=== PATIENT | male | born 1950 | race Caucasian/White ===

== ENCOUNTER 2019-05-27 10:39 | Day surgery (SDC) | payer MEDICARE, OTHER ==
[2019-05-27] VITALS (7 sets, daily range): BP systolic 102–146; BP diastolic 51–87
[~2019-05-27] VITALS: Ht 175.3 cm; Wt 93.3 kg
[2019-05-27] MEDS ORDERED: LISI10TA4 PO (11:33)
[2019-05-27] MEDS ORDERED: ATOR40TA71 PO (11:33)
[2019-05-27] MEDS ORDERED: CLOP75TA35 PO (11:33)
[2019-05-27] MEDS ORDERED: CARV-50 PO (11:33)
[2019-05-27] MEDS ORDERED: SERT100T10 PO (11:33)
[2019-05-27 11:46] LABS: BASOPHILS # (AUTO) 0.1 X10'3 (0-0.2); BASOPHILS % (AUTO) 0.9 % (0-1); EOSINOPHILS # (AUTO) 0.2 X10'3 (0-0.9); EOSINOPHILS % (AUTO) 2.8 % (0-6); HEMATOCRIT 41.1 % (42.0-52.0); HEMOGLOBIN 14.2 g/dl (14.0-17.9); LYMPHOCYTES # (AUTO) 1.8 X10'3 (1.1-4.8); LYMPHOCYTES % (AUTO) 27.6 % (21-51); MEAN CORPUSCULAR HEMOGLOBIN 28.4 PG (27.0-31.0); MEAN CORPUSCULAR HGB CONC 34.5 g/dL (33.0-36.5); MEAN CORPUSCULAR VOLUME 82.4 FL (78-98); MEAN PLATELET VOLUME 7.1 FL (7.4-10.4); MONOCYTES # (AUTO) 0.6 X10'3 (0-0.9); MONOCYTES % (AUTO) 9.2 % (2-12); NEUTROPHILS # (AUTO) 3.9 X10'3 (1.8-7.7); NEUTROPHILS % (AUTO) 59.5 % (42-75); PLATELET COUNT 193 X10'3 (140-440); RED BLOOD COUNT 4.99 X10'6 (4.70-6.10); RED CELL DISTRIBUTION WIDTH 14.8 % (11.5-14.5); WHITE BLOOD COUNT 6.5 X10'3 (4.5-11.0)
[2019-05-27 11:57] LABS: ALBUMIN 3.3 G/DL (3.4-5.0); ANION GAP 8 (8-16); BLOOD UREA NITROGEN 14 MG/DL (7-18); BUN/CREATININE RATIO 10.9 (5.4-32.0); CALCIUM 8.4 MG/DL (8.5-10.1); CHLORIDE 107 MMOL/L (99-107); CREATININE 1.29 MG/DL (0.60-1.10); GLUCOSE 98 MG/DL (70-104); SODIUM 141 MMOL/L (135-145); TOTAL CARBON DIOXIDE 26.2 MMOL/L (24-32); eGFR 55 ML/MIN
[2019-05-27] MEDS ORDERED: proCHLORperazine 10 MG/2 ml inj ONE (15:56)
[2019-05-27] MEDS ORDERED: midazolam 2 mg/2 ml injection ONE ×2 (15:57→16:25)
[2019-05-27] MEDS ORDERED: fentaNYL/PF 50MCG/1 ML 2ML syringe ONE ×2 (15:57→16:25)
[2019-05-27] MEDS ORDERED: ceFAZolin 1000mg inj ONE (15:57)
[2019-05-27] MEDS ORDERED: vancomycin 1,000mg inj ONE ×2 (15:57→16:00)
[2019-05-27] MEDS ORDERED: LIDOcaine 1% W/epiNEPHrine 1:100,000 20ml vial ONE (15:57)
[2019-05-27] MEDS ORDERED: hydrocortisone sod succ/PF 100mg/2ml inj. ONE (17:23)
== END 2019-05-27 19:45 | disposition home or self-care (01) ==
LOC: SSTAY O 10:39
PROVIDERS: ATTEND Internal Medicine Cardiovascular Disease
DX: Z45.010 Encounter for checking and testing of cardiac pacemaker pulse generator [battery] (principal); I25.119 Atherosclerotic heart disease of native coronary artery with unspecified angina pectoris; I42.9 Cardiomyopathy, unspecified; Z95.810 Presence of automatic (implantable) cardiac defibrillator
CPT/HCPCS: 33229; 36415; 80048; 85025; 85610; C1882; J0690; J0780; J1720; J2250; J3010; J3370; J7050; 93005; 99152; 99153; A4620